=== PATIENT | male | born 2000 | race Hispanic/Latino ===

== ENCOUNTER 2023-09-16 23:52 | Emergency (ER) | payer OTHER ==
[~2023-09-16] VITALS: Ht 160 cm; Wt 63.5 kg
[2023-09-17 00:36] VITALS: BP 119/66; PULSE 72; RESP 16; O2SAT 100
[2023-09-17] MEDS: IBUPROFEN 800 MG TAB PO ONE (01:11)
[2023-09-17] MEDS: IBUPROFEN 400 MG TABLET ONE (01:14)
[2023-09-17] MEDS: HYDROCODONE/ACETAMINOPHEN 5/325 MG TAB PO ONE (01:35)
[2023-09-17] MEDS: ORPHENADRINE CITRATE 30 MG/ML ML IM ONE (01:36)
[2023-09-17] MEDS ORDERED: IBUP-2070 PO (01:40)
[2023-09-17] MEDS ORDERED: CYCL-309 PO (01:40)
[2023-09-17] MEDS: LIDOCAINE 5% TOPICAL PATCH TP ONE (01:45)
== END 2023-09-17 02:12 | disposition home or self-care (01) ==
LOC: EDH 23:52 → EDBD 23:52 → EDH 09-17 02:12
DX: S39.012A Strain of muscle, fascia and tendon of lower back, initial encounter (principal); Z79.899 Other long term (current) drug therapy; X58.XXXA Exposure to other specified factors, initial encounter; Y93.89 Activity, other specified; Y92.89 Other specified places as the place of occurrence of the external cause; Y99.8 Other external cause status
CPT/HCPCS: 96372; J2360